=== PATIENT | female | born 1940 | race Caucasian/White ===

== ENCOUNTER 2016-09-30 18:43 | Inpatient (IN) | payer MEDICARE ==
[~2016-09-30 18:43] MED LIST: TRAMADOL HCL50 M2 PO
[2016-09-30] MEDS ORDERED: PEPCID20 M1 PO (19:09)
[2016-09-30 19:45] LABS: URINE BILIRUBIN MODERATE (NEG); URINE BLOOD LARGE (NEG); URINE GLUCOSE (UA) NEGATIVE (NEG); URINE KETONE SMALL (NEG); URINE LEUKOCYTE ESTERASE POSITIVE (NEG); URINE NITRITE NEGATIVE (NEG); URINE PH 6.5 (5.0-8.0); URINE PROTEIN MODERATE (NEG)
[2016-09-30 19:46] LABS: URINE APPEARANCE HAZY; URINE COLOR DARK YELLOW
[2016-09-30 19:51] LABS: URINE BACTERIA 1+
[2016-09-30 19:58] LABS: BASO % 0.1 % (0-2); EOS % 0.8 % (0-7); EOSINOPHIL ABSOLUTE COUNT 0.1 tho/cmm (0.0-0.7); HCT-HEMATOCRIT 34.1 % (34.0-49.0); HGB-HEMOGLOBIN 11.3 gm/dl (12.0-15.5); IMMATURE GRANULOCYTES ABSOLUTE 0.11 tho/cmm (0-0.03); IMMATURE GRANULOCYTES PERCENT 0.7 % (0-0.3); LYMPH % 4.7 % (20-45); LYMPH ABSOLUTE COUNT 0.8 tho/cmm (0.8-4.5); MCH (MEAN CORPUSCULAR HGB) 28.7 pg (28.0-32.0); MCHC MEAN CORPUSCULAR HGB CONC 33.1 % (32.0-36.0); MCV (MEAN CELL VOLUME) 86.5 fl (82.0-96.0); MEAN PLATELET VOLUME 8.9 cmc (9.4-12.4); MONO % 7.5 % (0-12); MONOCYTE ABSOLUTE COUNT 1.2 tho/cmm (0.0-1.2); NEUTROPHIL ABSOLUTE COUNT 13.8 tho/cmm (1.6-8.0); NEUTROPHIL-AUTOMATED 13.8 tho/cmm (1.6-8.0); NEUTROPHILS % 86.2 % (40-80); PLATELET COUNT 385 tho/cmm (150-450); RED BLOOD COUNT 3.94 mil/cmm (4.00-5.20); RED CELL DISTRIBUTION WIDTH 14.8 % (12.4-16.4)
[2016-09-30 20:14] LABS: ANION GAP 12 mmol/L (0-20); BLOOD UREA NITROGEN 9 mg/dl (6-24); CALCIUM 8.4 mg/dl (8.5-10.5); CARBON DIOXIDE-VENOUS 35 mmol/L (22-32); CHLORIDE 93 mmol/l (96-110); CREATININE 0.74 mg/dl (0.50-1.10); GLUCOSE 137 mg/dL (70-110); SODIUM 137 mmol/L (135-145); eGFR VALUE FOR BLACK >90 mL/Min
[2016-09-30 20:22] LABS: POTASSIUM 2.6 mmol/L (3.7-5.1)
[2016-09-30 20:53] LABS: URINE APPEARANCE HAZY; URINE BILIRUBIN NEGATIVE (NEG); URINE BLOOD MODERATE (NEG); URINE COLOR YELLOW; URINE GLUCOSE (UA) NEGATIVE (NEG); URINE KETONE NEGATIVE (NEG); URINE LEUKOCYTE ESTERASE POSITIVE (NEG); URINE NITRITE NEGATIVE (NEG); URINE PROTEIN SMALL (NEG); URINE SPECIFIC GRAVITY 1.005 (1.003-1.030)
[2016-09-30 21:03] LABS: URINE BACTERIA 1+; URINE EPITHELIAL CELLS 0-3 /[HPF] (0-10)
[2016-09-30 21:04] LABS: ALB/GLOB RATIO 0.4 (0.8-2.0); ALBUMIN 2.2 g/dl (3.5-5.0); BILIRUBIN,DIRECT 0.4 mg/dl (0.0-0.3); BILIRUBIN,INDIRECT 0.5 mg/dL (0.0-1.0); BILIRUBIN,TOTAL 0.9 mg/dl (0-1.5)
[2016-09-30 21:08] LABS: TSH-THYROID STIMULATING HORM. 62.4 uIU/ml (0.40-3.80)
[2016-10-01 06:32] LABS: BASO % 0.1 % (0-2); EOS % 0.9 % (0-7); EOSINOPHIL ABSOLUTE COUNT 0.1 tho/cmm (0.0-0.7); HCT-HEMATOCRIT 33.6 % (34.0-49.0); HGB-HEMOGLOBIN 10.8 gm/dl (12.0-15.5); IMMATURE GRANULOCYTES ABSOLUTE 0.13 tho/cmm (0-0.03); IMMATURE GRANULOCYTES PERCENT 0.8 % (0-0.3); LYMPH % 5.2 % (20-45); LYMPH ABSOLUTE COUNT 0.8 tho/cmm (0.8-4.5); MCH (MEAN CORPUSCULAR HGB) 28.2 pg (28.0-32.0); MCHC MEAN CORPUSCULAR HGB CONC 32.1 % (32.0-36.0); MCV (MEAN CELL VOLUME) 87.7 fl (82.0-96.0); MONO % 7.8 % (0-12); MONOCYTE ABSOLUTE COUNT 1.2 tho/cmm (0.0-1.2); NEUTROPHIL ABSOLUTE COUNT 13.6 tho/cmm (1.6-8.0); NEUTROPHIL-AUTOMATED 13.6 tho/cmm (1.6-8.0); NEUTROPHILS % 85.2 % (40-80); PLATELET COUNT 379 tho/cmm (150-450); RED BLOOD COUNT 3.83 mil/cmm (4.00-5.20); RED CELL DISTRIBUTION WIDTH 14.9 % (12.4-16.4); WHITE BLOOD COUNT 15.9 tho/cmm (4.0-10.0)
[2016-10-01 06:42] LABS: ANION GAP 11 mmol/L (0-20); BLOOD UREA NITROGEN 6 mg/dl (6-24); CALCIUM 8.1 mg/dl (8.5-10.5); CARBON DIOXIDE-VENOUS 30 mmol/L (22-32); CHLORIDE 102 mmol/l (96-110); CREATININE 0.67 mg/dl (0.50-1.10); GLUCOSE 102 mg/dL (70-110); POTASSIUM 3.1 mmol/L (3.7-5.1); SODIUM 140 mmol/L (135-145); eGFR VALUE FOR BLACK >90 mL/Min
[2016-10-02 04:54] LABS: BASO % 0.1 % (0-2); EOS % 0.9 % (0-7); EOSINOPHIL ABSOLUTE COUNT 0.2 tho/cmm (0.0-0.7); HGB-HEMOGLOBIN 10.3 gm/dl (12.0-15.5); IMMATURE GRANULOCYTES ABSOLUTE 0.17 tho/cmm (0-0.03); LYMPH % 4.8 % (20-45); LYMPH ABSOLUTE COUNT 0.9 tho/cmm (0.8-4.5); MCH (MEAN CORPUSCULAR HGB) 28.5 pg (28.0-32.0); MCHC MEAN CORPUSCULAR HGB CONC 32.2 % (32.0-36.0); MCV (MEAN CELL VOLUME) 88.6 fl (82.0-96.0); MEAN PLATELET VOLUME 9.3 cmc (9.4-12.4); MONOCYTE ABSOLUTE COUNT 1.1 tho/cmm (0.0-1.2); NEUTROPHIL ABSOLUTE COUNT 15.5 tho/cmm (1.6-8.0); NEUTROPHIL-AUTOMATED 15.5 tho/cmm (1.6-8.0); NEUTROPHILS % 87.2 % (40-80); PLATELET COUNT 388 tho/cmm (150-450); RED BLOOD COUNT 3.61 mil/cmm (4.00-5.20); RED CELL DISTRIBUTION WIDTH 15.2 % (12.4-16.4); WHITE BLOOD COUNT 17.8 tho/cmm (4.0-10.0)
[2016-10-02 04:58] LABS: INR 1.3 INR (0.9-1.1)
[2016-10-02 05:07] LABS: ALB/GLOB RATIO 0.5 (0.8-2.0); ALBUMIN 2.1 g/dl (3.5-5.0); ALKALINE PHOSPHATASE 160 U/L (33-138); ALT/SGPT 33 U/L (12-78); ANION GAP 12 mmol/L (0-20); AST/SGOT 36 U/L (10-40); BILIRUBIN,TOTAL 0.5 mg/dl (0-1.5); BLOOD UREA NITROGEN 4 mg/dl (6-24); CALCIUM 8.3 mg/dl (8.5-10.5); CARBON DIOXIDE-VENOUS 28 mmol/L (22-32); CHLORIDE 105 mmol/l (96-110); GLUCOSE 94 mg/dL (70-110); MAGNESIUM 1.9 mg/dl (1.8-2.6); POTASSIUM 3.3 mmol/L (3.7-5.1); SODIUM 142 mmol/L (135-145); eGFR VALUE FOR BLACK >90 mL/Min
[2016-10-03 04:59] LABS: ANION GAP 13 mmol/L (0-20); BLOOD UREA NITROGEN 7 mg/dl (6-24); CALCIUM 8.5 mg/dl (8.5-10.5); CARBON DIOXIDE-VENOUS 24 mmol/L (22-32); CHLORIDE 107 mmol/l (96-110); CREATININE 0.58 mg/dl (0.50-1.10); GLUCOSE 120 mg/dL (70-110); SODIUM 139 mmol/L (135-145); eGFR VALUE FOR BLACK >90 mL/Min
[2016-10-03 05:05] LABS: POTASSIUM 4.9 mmol/L (3.7-5.1)
[2016-10-03 05:11] LABS: HCT-HEMATOCRIT 33.7 % (34.0-49.0); HGB-HEMOGLOBIN 10.6 gm/dl (12.0-15.5); IMMATURE GRANULOCYTES ABSOLUTE 0.17 tho/cmm (0-0.03); IMMATURE GRANULOCYTES PERCENT 0.8 % (0-0.3); LYMPH % 1.9 % (20-45); LYMPH ABSOLUTE COUNT 0.4 tho/cmm (0.8-4.5); MCH (MEAN CORPUSCULAR HGB) 28.2 pg (28.0-32.0); MCHC MEAN CORPUSCULAR HGB CONC 31.5 % (32.0-36.0); MCV (MEAN CELL VOLUME) 89.6 fl (82.0-96.0); MEAN PLATELET VOLUME 9.6 cmc (9.4-12.4); MONOCYTE ABSOLUTE COUNT 0.6 tho/cmm (0.0-1.2); NEUTROPHIL ABSOLUTE COUNT 19.4 tho/cmm (1.6-8.0); NEUTROPHIL-AUTOMATED 19.4 tho/cmm (1.6-8.0); NEUTROPHILS % 94.3 % (40-80); PLATELET COUNT 396 tho/cmm (150-450); RED BLOOD COUNT 3.76 mil/cmm (4.00-5.20); RED CELL DISTRIBUTION WIDTH 15.5 % (12.4-16.4); WHITE BLOOD COUNT 20.6 tho/cmm (4.0-10.0)
[2016-10-04 06:35] LABS: BASO % 0.1 % (0-2); EOS % 0.6 % (0-7); EOSINOPHIL ABSOLUTE COUNT 0.2 tho/cmm (0.0-0.7); HCT-HEMATOCRIT 31.9 % (34.0-49.0); HGB-HEMOGLOBIN 10.2 gm/dl (12.0-15.5); LYMPH % 3.8 % (20-45); MCV (MEAN CELL VOLUME) 90.6 fl (82.0-96.0); MEAN PLATELET VOLUME 9.9 cmc (9.4-12.4); MONO % 4.6 % (0-12); MONOCYTE ABSOLUTE COUNT 1.2 tho/cmm (0.0-1.2); NEUTROPHIL ABSOLUTE COUNT 24.1 tho/cmm (1.6-8.0); NEUTROPHIL-AUTOMATED 24.1 tho/cmm (1.6-8.0); NEUTROPHILS % 90.9 % (40-80); PLATELET COUNT 424 tho/cmm (150-450); RED BLOOD COUNT 3.52 mil/cmm (4.00-5.20); RED CELL DISTRIBUTION WIDTH 15.4 % (12.4-16.4); WHITE BLOOD COUNT 26.5 tho/cmm (4.0-10.0)
[2016-10-05] MEDS ORDERED: MORPHINE S20 MG/5 M1 PO (17:40)
[2016-10-05] MEDS ORDERED: AUGMENTIN 875-1 EAC2 PO (17:41)
[2016-10-05] MEDS ORDERED: SYNTHROID50 MC1 PO (17:41)
[2016-10-05] MEDS ORDERED: IPRAT-ALBUT 0.5-3 ML NEB (17:43)
[2016-10-05] MEDS ORDERED: MS CONTIN30 M1 PO (17:43)
== END 2016-10-05 17:52 | disposition home health service (06) | DRG 180 ==
LOC: EDMED 18:43 → EMR2 22:03 → 5WF 10-01 00:30
PROVIDERS: Internal Medicine; Physician Assistant; ADMIT Hospitalist
PROC: 0BB78ZX Excision of Left Main Bronchus, Via Natural or Artificial Opening Endoscopic, Diagnostic (ICD-10-PCS; principal; 2016-10-01)
PROC: DBY27ZZ Contact Radiation of Lung (ICD-10-PCS; 2016-10-02)
PROC: DPYC7ZZ Contact Radiation of Other Bone (ICD-10-PCS; 2016-10-02)
DX: C34.90 Malignant neoplasm of unspecified part of unspecified bronchus or lung (principal); J18.9 Pneumonia, unspecified organism; C79.51 Secondary malignant neoplasm of bone; C79.72 Secondary malignant neoplasm of left adrenal gland; C79.71 Secondary malignant neoplasm of right adrenal gland; M84.48XA Pathological fracture, other site, initial encounter for fracture; J44.9 Chronic obstructive pulmonary disease, unspecified; E03.9 Hypothyroidism, unspecified; Z51.5 Encounter for palliative care; E87.6 Hypokalemia; K21.9 Gastro-esophageal reflux disease without esophagitis; F17.210 Nicotine dependence, cigarettes, uncomplicated; E86.0 Dehydration; R59.0 Localized enlarged lymph nodes; Z66 Do not resuscitate; F41.9 Anxiety disorder, unspecified; L29.9 Pruritus, unspecified
CPT/HCPCS: C8929; J1650; J1956; J2250; J2270; J2405; J3010; J3420; J3480; J7030; P9612; Q9967

== ENCOUNTER 2016-10-25 02:40 | Inpatient (IN) | payer MEDICARE ==
[~2016-10-25 02:40] MED LIST changes: +AUGMENTIN 875-1 EAC2 PO; +IPRAT-ALBUT 0.5-3 ML NEB; +MORPHINE S20 MG/5 M1 PO; +MS CONTIN30 M1 PO; +PEPCID20 M1 PO; +SYNTHROID50 MC1 PO
[2016-10-25 03:30] LABS: BASO % 0.2 % (0-2); EOS % 0.9 % (0-7); EOSINOPHIL ABSOLUTE COUNT 0.1 tho/cmm (0.0-0.7); HCT-HEMATOCRIT 31.1 % (34.0-49.0); HGB-HEMOGLOBIN 10.2 gm/dl (12.0-15.5); IMMATURE GRANULOCYTES ABSOLUTE 0.06 tho/cmm (0-0.03); IMMATURE GRANULOCYTES PERCENT 1.1 % (0-0.3); LYMPH % 10.4 % (20-45); LYMPH ABSOLUTE COUNT 0.6 tho/cmm (0.8-4.5); MCHC MEAN CORPUSCULAR HGB CONC 32.8 % (32.0-36.0); MEAN PLATELET VOLUME 9.3 cmc (9.4-12.4); MONO % 6.1 % (0-12); MONOCYTE ABSOLUTE COUNT 0.3 tho/cmm (0.0-1.2); NEUTROPHIL ABSOLUTE COUNT 4.5 tho/cmm (1.6-8.0); NEUTROPHIL-AUTOMATED 4.5 tho/cmm (1.6-8.0); NEUTROPHILS % 81.3 % (40-80); PLATELET COUNT 127 tho/cmm (150-450); RED BLOOD COUNT 3.64 mil/cmm (4.00-5.20); WHITE BLOOD COUNT 5.6 tho/cmm (4.0-10.0)
[2016-10-25 03:31] LABS: MCV (MEAN CELL VOLUME) 85.4 fl (82.0-96.0)
[2016-10-25 03:44] LABS: ALB/GLOB RATIO 0.5 (0.8-2.0); ALBUMIN 1.9 g/dl (3.5-5.0); ALKALINE PHOSPHATASE 73 U/L (33-138); ALT/SGPT 15 U/L (12-78); ANION GAP 14 mmol/L (0-20); AST/SGOT 18 U/L (10-40); BILIRUBIN,TOTAL 0.8 mg/dl (0-1.5); BLOOD UREA NITROGEN 16 mg/dl (6-24); CALCIUM 7.8 mg/dl (8.5-10.5); CARBON DIOXIDE-VENOUS 26 mmol/L (22-32); CHLORIDE 100 mmol/l (96-110); GLUCOSE 97 mg/dL (70-110); SODIUM 137 mmol/L (135-145); eGFR VALUE FOR BLACK >90 mL/Min
[2016-10-25 03:59] LABS: POTASSIUM 2.7 mmol/L (3.7-5.1)
[2016-10-25 04:02] LABS: URINE BILIRUBIN MODERATE (NEG); URINE BLOOD SMALL (NEG); URINE GLUCOSE (UA) NEGATIVE (NEG); URINE KETONE MODERATE (NEG); URINE LEUKOCYTE ESTERASE POSITIVE (NEG); URINE NITRITE NEGATIVE (NEG); URINE PROTEIN MODERATE (NEG); URINE SPECIFIC GRAVITY 1.015 (1.003-1.030)
[2016-10-25 04:03] LABS: URINE APPEARANCE HAZY; URINE COLOR BROWN
[2016-10-25 04:11] LABS: URINE BACTERIA 2+; URINE MUCUS 1+; URINE RBC 0-3 /[HPF] (0-5)
[2016-10-26 05:53] LABS: BASO % 0.2 % (0-2); EOS % 1.7 % (0-7); EOSINOPHIL ABSOLUTE COUNT 0.1 tho/cmm (0.0-0.7); HCT-HEMATOCRIT 29.5 % (34.0-49.0); HGB-HEMOGLOBIN 9.5 gm/dl (12.0-15.5); IMMATURE GRANULOCYTES ABSOLUTE 0.06 tho/cmm (0-0.03); IMMATURE GRANULOCYTES PERCENT 1.3 % (0-0.3); LYMPH ABSOLUTE COUNT 0.6 tho/cmm (0.8-4.5); MCHC MEAN CORPUSCULAR HGB CONC 32.2 % (32.0-36.0); MEAN PLATELET VOLUME 9.1 cmc (9.4-12.4); MONO % 6.5 % (0-12); MONOCYTE ABSOLUTE COUNT 0.3 tho/cmm (0.0-1.2); NEUTROPHIL ABSOLUTE COUNT 3.7 tho/cmm (1.6-8.0); NEUTROPHIL-AUTOMATED 3.7 tho/cmm (1.6-8.0); NEUTROPHILS % 77.3 % (40-80); PLATELET COUNT 111 tho/cmm (150-450); RED BLOOD COUNT 3.39 mil/cmm (4.00-5.20); RED CELL DISTRIBUTION WIDTH 16.4 % (12.4-16.4); WHITE BLOOD COUNT 4.8 tho/cmm (4.0-10.0)
[2016-10-26 06:13] LABS: ANION GAP 10 mmol/L (0-20); BLOOD UREA NITROGEN 9 mg/dl (6-24); CALCIUM 7.7 mg/dl (8.5-10.5); CARBON DIOXIDE-VENOUS 27 mmol/L (22-32); CHLORIDE 105 mmol/l (96-110); CREATININE 0.51 mg/dl (0.50-1.10); GLUCOSE 80 mg/dL (70-110); SODIUM 138 mmol/L (135-145); eGFR VALUE FOR BLACK >90 mL/Min
[2016-10-26 06:20] LABS: POTASSIUM 3.9 mmol/L (3.7-5.1)
[2016-10-26] MEDS ORDERED: BACTRIM DS TAB1 EAC2 PO (13:41)
[2016-10-26] MEDS ORDERED: MS CONTIN30 M1 PO (13:42)
[2016-10-26] MEDS ORDERED: MORPHINE S20 MG/1 M1 PO/SL (13:44)
[2016-10-26] MEDS ORDERED: TYLENOL ARTHRI650 M1 PO (13:46)
[2016-10-26] MEDS ORDERED: HALDOL5 MG/1 ML PO (13:47)
[2016-10-26] MEDS ORDERED: ATIVAN0.5 M1 PO (13:48)
[2016-10-26] MEDS ORDERED: ATIVAN2 MG/1 ML PO/SL (14:01)
[2016-10-26] MEDS ORDERED: HALDOL5 MG/1 ML PO/SL (14:01)
== END 2016-10-26 16:02 | disposition hospice, home (50) | DRG 690 ==
LOC: EDMED 02:40 → EMR2 05:01 → 5WF 06:00
PROVIDERS: Emergency Medicine; Registered Nurse; ADMIT Internal Medicine
DX: N39.0 Urinary tract infection, site not specified (principal); C79.51 Secondary malignant neoplasm of bone; C79.70 Secondary malignant neoplasm of unspecified adrenal gland; D69.6 Thrombocytopenia, unspecified; C34.90 Malignant neoplasm of unspecified part of unspecified bronchus or lung; D64.9 Anemia, unspecified; J44.9 Chronic obstructive pulmonary disease, unspecified; E87.6 Hypokalemia; Z51.5 Encounter for palliative care; Z66 Do not resuscitate; K21.9 Gastro-esophageal reflux disease without esophagitis; E03.9 Hypothyroidism, unspecified; Z87.891 Personal history of nicotine dependence; Z79.899 Other long term (current) drug therapy
CPT/HCPCS: C9113; J0696; J2405; J3480; J7030